=== PATIENT | male | born 1990 ===

== ENCOUNTER 2017-11-06 17:37 | Emergency (ER) | payer SELFPAY ==
[2017-11-06 18:17] VITALS: BMI 27.3
[2017-11-06 18:19] VITALS: O2SAT 98
--- NOTE | 2017-11-06 21:38 | C.PDOC ---
History Of Present Illness Patient is a 27 y/o male who presents to the ED with a complaint of swelling to the bottom of scrotum and testes area for the last 3 days. Patient reports to have shaved the area and afterword developed a painful bump. Denies any fever, dysuria, or hematuria. No other physical complaints at this time. Time Seen by Provider: 11/06/17 18:27 Chief Complaint (Nursing): Male Genitourinary History Per: Patient History/Exam Limitations: no limitations Onset/Duration Of Symptoms: Days (3) Current Symptoms Are (Timing): Still Present Quality Of Discomfort: "Pain" Associated Symptoms: denies: Fever, Urinary Symptoms (dysuria, hematuria) Recent travel outside of the [place]: No Past Medical History Reviewed: Historical Data, Nursing Documentation, Vital Signs Vital Signs: Last Vital Signs Temp 97.8 F 11/06/17 18:17 Pulse 85 11/06/17 18:17 Resp 18 11/06/17 18:17 BP 127/82 11/06/17 18:17 Pulse Ox 98 11/06/17 21:41 - Medical History PMH: No Chronic Diseases Surgical History: No Surg Hx Family History: States: No Known Family Hx - Social History Hx Tobacco Use: No Hx Alcohol Use: No Hx Substance Use: No - Immunization History Hx Tetanus Toxoid Vaccination: Yes Hx Influenza Vaccination: Yes Hx Pneumococcal Vaccination: No Review Of Systems Constitutional: Negative for: Fever Genitourinary: Positive for: Scrotal Pain (swelling to bottom aspect). Negative for: Dysuria, Hematuria Physical Exam - Physical Exam Appears: Well, Non-toxic, No Acute Distress Skin: Normal Color, Warm, No Rash Head: Atraumatic, Normacephalic Eye(s): bilateral: Normal Inspection Oral Mucosa: Moist Throat: No Erythema, No Exudate Neck: Normal ROM, Supple Chest: Symmetrical, No Tenderness Cardiovascular: Rhythm Regular, No Friction Rub, No Murmur Respiratory: Normal Breath Sounds, No Rales, No Rhonchi, No Wheezing Gastrointestinal/Abdominal: Soft, No Tenderness Back: Normal Inspection, No CVA Tenderness Male Genital: Scrotal Swelling (2cm area of swelling, erythema, with mild tenderness and induration to posterior scrotum), Other (Rn Camp: Dalton Bennett RN) Extremity: Normal ROM, No Swelling Neurological/Psych: Oriented x3, Normal Speech, Normal Motor Gait: Steady ED Course And Treatment - Laboratory Results Result Diagrams: 11/06/17 22:47 11/06/17 22:47 O2 Sat by Pulse Oximetry: 98 (on RA) Pulse Ox Interpretation: Normal - CT Scan/US testicular US Other Rad Studies (CT/US): Read By Radiologist, Radiology Report Reviewed CT/US Interpretation: FINDINGS: Right: There is right inguinal swelling and edema. There is extensive right scrotal edema and. swelling. There is hyperemia on color Doppler imaging. [facility]. [facility]. Final Radiology Report [id number]. Name: ELLIE BUTLER Age: 27Years M Date: 11/06/2017. SSN: [id number] : 1990. Study: US SCROTUM & CONTENTS Requesting Physician: Ingrid Landa. Images: 74. Addl Studies: Provided Clinical History: swelling at base of the scrotum, possible abscess. CONFIDENTIALITY STATEMENT. This transmission is confidential and is intended to be a privileged communication. It is intended only for the use of the addressee. Access to this. message by anyone else is unauthorized. If you are not the intended recipient, any disclosure, copying, distribution or any action taken, or omitted to. be taken in reliance on it is prohibited and may be unlawful. If you received this communication in error, please notify us by telephone, so that return. of this document to us can be arranged. Page 2 of 2. Right testicle measures approximately 5.1 x 2.4 x 3.4 cm. There is a small calcification in the right. testicle. There are no testicular masses. There is small hydrocele .There is a small scrotolith. There is. expected intratesticular blood flow. Right epididymal head measures approximately 9 x 8 mm. Left: There is less extensive inguinal soft tissue swelling. There is extensive left scrotal edema and. swelling. Left testicle measures approximately 4.7 x 2.7 x 3 cm. Echotexture is uniform. There are no testicular. masses. There is expected intratesticular blood flow. There is a small hydrocele. Left epididymal. head measures approximately 9 x 10 mm. Midline: In the midline at the base of the scrotum there is diffuse edema and hyperemia. There are 2. low attenuation hypoechoic collections. There is peripheral hyperemia on color imaging. These. measure approximately 1.6 x 1.6 x 1.4 cm and 1.8 x 1.4 x 1.3 cm. Lesions are in the midline at the. base of the scrotum. IMPRESSION: Scrotal cellulitis with 2 abscesses; no torsion. Thank you for allowing us to participate in the care of your patient. Dictated and Authenticated by: July Samayoa MD Medical Decision Making Medical Decision Making: Testicular US ordered. Rocephin IV ordered. The case was discussed with Dr. Carter (Urologist oncall) who states that the WBC is normal at this time, and the patient can be treated outpatient. He will follow up with the outpatient in 2 days without fail. Patient was instructed to place warm compresses to the region and return to the ED if worsened. Disposition - Disposition Referrals: Raji Carter MD [Staff Provider] - Disposition: HOME/ ROUTINE Disposition Time: 23:09 Condition: FAIR Additional Instructions: Follow up with the medical doctor/clinic within 1-2 days. Return if worsened. Prescriptions: Cefuroxime Axetil [Cefuroxime] 500 mg PO BID #28 tablet Ibuprofen [Motrin] 600 mg PO TID #21 tab Mupirocin 2% Cream [Bactroban 2%] 30 gm EXT TID #3 tube Instructions: Skin Abscess, Cellulitis (Skin Infection), Adult (DC) Forms: [employer] ([place]) Print Language: [place] - Clinical Impression Clinical Impression: Scrotal abscess, Cellulitis - Scribe Statement The provider has reviewed the documentation as recorded by the Scribe Nedra Madison All medical record entries made by the Scribe were at my direction and personally dictated by me. I have reviewed the chart and agree that the record accurately reflects my personal performance of the history, physical exam, medical decision making, and the department course for this patient. I have also personally directed, reviewed, and agree with the discharge instructions and disposition.
--- NOTE | 2017-11-06 22:25 | US ---
EXAM: US Scrotum EXAM DATE/TIME: 11/06/2017 6:56 PM CLINICAL HISTORY: 27 years old, male; Signs and symptoms; Edema and swelling, testicles or scrotum; Additional info: Swelling at base of the scrotum, possible abscess TECHNIQUE: Real-time ultrasound of the scrotum with color Doppler and image documentation. COMPARISON: There are no prior studies for comparison. FINDINGS: Right: There is right inguinal swelling and edema. There is extensive right scrotal edema and swelling. There is hyperemia on color Doppler imaging. Right testicle measures approximately 5.1 x 2.4 x 3.4 cm. There is a small calcification in the right testicle. There are no testicular masses. There is small hydrocele .There is a small scrotolith. There is expected intratesticular blood flow. Right epididymal head measures approximately 9 x 8 mm. Left: There is less extensive inguinal soft tissue swelling. There is extensive left scrotal edema and swelling. Left testicle measures approximately 4.7 x 2.7 x 3 cm. Echotexture is uniform. There are no testicular masses. There is expected intratesticular blood flow. There is a small hydrocele. Left epididymal head measures approximately 9 x 10 mm. Midline: In the midline at the base of the scrotum there is diffuse edema and hyperemia. There are 2 low attenuation hypoechoic collections. There is peripheral hyperemia on color imaging. These measure approximately 1.6 x 1.6 x 1.4 cm and 1.8 x 1.4 x 1.3 cm. Lesions are in the midline at the base of the scrotum. IMPRESSION: Scrotal cellulitis with 2 abscesses; no torsion
[2017-11-06] MEDS ORDERED: cefTRIAXone IV 1 gm in Dextros 50 ML IVPB ONE (22:48)
[2017-11-06 22:49] LABS: BASO # 0.1 K/uL (0.0-0.2); BASO % 0.6 % (0.0-2.0); EOS # 0.3 K/uL (0.0-0.7); EOS % 3.2 % (0.0-4.0); HEMOGLOBIN 14.3 g/dL (12.0-18.0); LYMPH # 3.5 K/uL (1.0-4.3); LYMPH % 35.9 % (20.0-40.0); MEAN CELL VOLUME 80.9 fL (80.0-94.0); MEAN CORPUSCULAR HEMOGLOBIN 27.2 pg (27.0-31.0); MEAN CORPUSCULAR HGB CONC 33.7 g/dL (33.0-37.0); MEAN PLATELET VOLUME 8.8 fL (7.2-11.7); MONO # 1.1 K/uL (0.0-0.8); NEUT # 4.9 K/uL (1.8-7.0); NEUT % 49.3 % (50.0-75.0); NRBC % 0.1 % (0.0-2.0); RBC 5.25 Mil/uL (4.40-5.90); RED CELL DISTRIBUTION WIDTH 13.9 % (11.5-14.5); WHITE BLOOD COUNT 9.8 K/uL (4.8-10.8)
[2017-11-06] MEDS ORDERED: cefTRIAXone IV 1 gm in Dextros 50 ML IV ONE (22:53)
[2017-11-06 23:02] LABS: ALB/GLOB RATIO 0.9 (1.0-2.1); ALBUMIN 4.2 g/dL (3.5-5.0); ALT/SGPT 63 U/L (21-72); AST/SGOT 41 U/L (17-59); BLOOD UREA NITROGEN 15 mg/dL (9-20); CALCIUM 9.2 mg/dl (8.6-10.4); GFR AFRICAN-AMERICAN > 60; GFR NON-AFRICAN AMERICAN > 60
[2017-11-06 23:33] VITALS: BP 117/74; PULSE 75; RESP 20; TEMP 98
== END 2017-11-06 23:33 | disposition home or self-care (01) ==
LOC: C.ER 17:37
DX: N49.2 Inflammatory disorders of scrotum (principal)
CPT/HCPCS: 76870; 80053; 85025; 99285; J0696